=== PATIENT | male | born 1990 | race Two or more races ===

== ENCOUNTER 2019-01-12 09:30 | Emergency (ER) | payer OTHER ==
[~2019-01-12] VITALS: Ht 167.6 cm; Wt 72.6 kg
[2019-01-12 10:27] VITALS: BP 131/80
[2019-01-12] MEDS ORDERED: ACETAMINOPHEN 500 MG TAB PO ONE (10:45)
[2019-01-12] MEDS ORDERED: cefTRIAXone SOD 1,000 MG VL IM ONE (11:15)
[2019-01-12 11:50] LABS: Urine Bacteria NONE SEEN /hpf (None Seen); Urine Blood Negative /uL (Negative); Urine Mucus FEW (None Seen); Urine Specific Gravity 1.027 (1.001-1.035); Urine WBC <1 /hpf (0 - 3)
== END 2019-01-12 12:11 | disposition home or self-care (01) ==
LOC: ER 09:37
DX: J18.9 Pneumonia, unspecified organism (principal)
CPT/HCPCS: 71046; 81001; 96372; 99284; J0696